=== PATIENT | male | born 1975 | race Caucasian/White ===

== ENCOUNTER 2017-05-07 13:36 | Observation (INO) | payer BC, OTHER ==
[~2017-05-07] VITALS: Ht 185.4 cm; Wt 106.8 kg
[2017-05-07] VITALS (11 sets, daily range): BP systolic 108–140; BP diastolic 61–83; PULSE 70–82; RESP 14–18; TEMP 96.9–98.1; O2SAT 95–98
[~2017-05-07 13:36] MED LIST: IBUP1TAB7 PO
[2017-05-07] MEDS ORDERED: LOSA100T PO (13:55)
--- NOTE | 2017-05-07 14:12 | PD ---
HPI Chief Complaint: Chest Pain Time Seen by Provider: 13:55 Travel History International Travel<30 days: No Contact w/Intl Traveler<30days: No Traveled to known affect area: No History of Present Illness HPI 41-year-old male with history of hypertension here for evaluation of chest pain. The patient reports that about 1.5 hours prior to arriving in the emergency department he began to experience substernal chest discomfort while at rest. He became diaphoretic and nauseous. States the pain was significantly worse when it started, currently 5 out of 10, nonradiating, no modifying factors. He feels slightly short of breath. No fevers, chills, cough , or recent illness. No paresthesias or motor deficits. No hemoptysis. No history of DVT or PE. No known history of cardiac disease. No family history of cardiac disease. He is a nonsmoker. No illicit drug use. He reports that he was evaluated by motor vehicle operator road supervisor Dr. Blake about a year ago reporting that he had a normal stress test at that time. PFSH Past Medical History Diminished Hearing: No Hypertension: Yes Kidney Stones: Yes Past Surgical History Other Surgery: Yes (back surgery) Social History Alcohol Use: Yes (2 BEERS AND 1 MIXED DRINK TODAY ) Tobacco Use: No Substance Use: No Allergies-Medications (Allergen,Severity, Reaction): Coded Allergies: No Known Allergies (Unverified , 06/14/16) Reported Meds & Prescriptions Reported Meds & Active Scripts Active Reported Losartan (Losartan Potassium) 100 Mg Tab 100 Mg PO DAILY Review of Systems Except as stated in HPI: all other systems reviewed are Neg Physical Exam Narrative GENERAL: Well-developed, well-nourished, comfortable, no apparent distress. SKIN: Focused skin assessment warm/dry. HEAD: Atraumatic. Normocephalic. EYES: Pupils equal and round. No scleral icterus. No injection or drainage. ENT: Mucous membranes pink and moist. NECK: Trachea midline. No JVD. CARDIOVASCULAR: Regular rate and rhythm. No murmur appreciated. Distal pulses brisk and equal bilaterally. RESPIRATORY: No accessory muscle use. Clear to auscultation. Breath sounds equal bilaterally. GASTROINTESTINAL: Abdomen soft, non-tender, nondistended. MUSCULOSKELETAL: No obvious deformities. No clubbing. No cyanosis. No edema. NEUROLOGICAL: Awake and alert. No obvious cranial nerve deficits. Motor grossly within normal limits. Normal speech. PSYCHIATRIC: Appropriate mood and affect; insight and judgment normal. Data Data Last Documented VS Vital Signs Date Time Temp Pulse Resp B/P (MAP) Pulse Ox O2 Delivery O2 Flow Rate FiO2 05/07/17 15:10 76 16 108/61 (77) 95 Room Air 05/07/17 13:49 98.1 Orders Orders Electrocardiogram (05/07/17 14:07) Basic Metabolic Panel (Bmp) (05/07/17 14:07) Ckmb (Isoenzyme) Profile (05/07/17 14:07) Complete Blood Count With Diff (05/07/17 14:07) D-Dimer (05/07/17 14:07) Prothrombin Time / Inr (Pt) (05/07/17 14:07) Act Partial Throm Time (Ptt) (05/07/17 14:07) Troponin I (05/07/17 14:07) Chest, Single Ap (05/07/17 14:07) Ecg Monitoring (05/07/17 14:07) Iv Access Insert/Monitor (05/07/17 14:07) Oximetry (05/07/17 14:07) Aspirin Chew (Aspirin Chew) (05/07/17 14:15) Sodium Chloride 0.9% Flush (Ns Flush) (05/07/17 14:15) Nitroglycerin Sl (Nitrostat Sl) (05/07/17 14:15) CKMB (05/07/17 14:27) CKMB% (05/07/17 14:27) Labs Laboratory Tests Test 05/07/17 14:27 White Blood Count 6.0 TH/MM3 Red Blood Count 4.98 MIL/MM3 Hemoglobin 15.3 GM/DL Hematocrit 45.1 % Mean Corpuscular Volume 90.6 FL Mean Corpuscular Hemoglobin 30.6 PG Mean Corpuscular Hemoglobin Concent 33.8 % Red Cell Distribution Width 12.4 % Platelet Count 182 TH/MM3 Mean Platelet Volume 8.1 FL Neutrophils (%) (Auto) 53.3 % Lymphocytes (%) (Auto) 32.1 % Monocytes (%) (Auto) 11.5 % Eosinophils (%) (Auto) 1.5 % Basophils (%) (Auto) 1.6 % Neutrophils # (Auto) 3.2 TH/MM3 Lymphocytes # (Auto) 1.9 TH/MM3 Monocytes # (Auto) 0.7 TH/MM3 Eosinophils # (Auto) 0.1 TH/MM3 Basophils # (Auto) 0.1 TH/MM3 CBC Comment DIFF FINAL Differential Comment Prothrombin Time 12.3 SEC Prothromb Time International Ratio 1.2 RATIO Activated Partial Thromboplast Time 23.0 SEC D-Dimer Quantitative (PE/DVT) LESS THAN 0.19 MG/L FEU Blood Urea Nitrogen 14 MG/DL Creatinine 0.98 MG/DL Random Glucose 96 MG/DL Calcium Level 8.0 MG/DL Sodium Level 138 MEQ/L Potassium Level 3.8 MEQ/L Chloride Level 105 MEQ/L Carbon Dioxide Level 24.0 MEQ/L Anion Gap 9 MEQ/L Estimat Glomerular Filtration Rate 85 ML/MIN Total Creatine Kinase 181 U/L Creatine Kinase MB 1.5 NG/ML Troponin I LESS THAN 0.02 NG/ML MDM Medical Decision Making Medical Screen Exam Complete: Yes Emergency Medical Condition: Yes Medical Record Reviewed: Yes Interpretation(s) EKG: Sinus, rate 77, normal axis, normal intervals, no acute ischemic abnormality. Differential Diagnosis ACS, pneumothorax, pericarditis, PE, pneumonia Narrative Course Initial vital signs show heart rate 82, blood pressure 140/78, pulse ox 98% on room air, oral temp of 98.1F. CBC is unremarkable. BMP is unremarkable. Cardiac enzymes are negative. D-dimer is less than 0.19. Chest x-ray: Normal exam. The patient was given 3 sublingual nitroglycerin and a full oral aspirin. On reassessment he states his chest pain has resolved. Patient will be admitted to the chest pain center for further cardiac evaluation. He is amenable to this plan. Case discussed with hospitalist Dr. Senior who will admit the patient to her service. Diagnosis Primary Impression: Chest pain Qualified Codes: R07.9 - Chest pain, unspecified Admitting Information Admitting Physician Requests: Derian Bah MD May 07, 2017 14:12
[2017-05-07] MEDS ORDERED: ASPIRIN 81 MG CHEW TAB PO ONE (14:15)
[2017-05-07] MEDS ORDERED: SODIUM CHLORIDE 0.9% FLUSH 10 ML FLUSH IVF PRN (14:15)
[2017-05-07] MEDS: NITROGLYCERIN 0.4 MG SL 25 TABS/BTL SL SCH ×3 (14:20→14:40)
--- NOTE | 2017-05-07 14:34 | RADRPT ---
EXAM DATE/TIME: 05/07/2017 14:17 [facility] COMPARISON: No previous studies available for comparison. INDICATIONS : Chest pain today MEDICAL HISTORY : None. SURGICAL HISTORY : None. ENCOUNTER: Initial ACUITY: 1 day PAIN SCORE: 5/10 LOCATION: Bilateral chest FINDINGS: A single view of the chest demonstrates the lungs to be symmetrically aerated without evidence of mas s, infiltrate or effusion. The cardiomediastinal contours are unremarkable. Osseous structures are intact. CONCLUSION: Normal examination. Nikita Lama MD on May 07, 2017 at 14:32 Board Certified Radiologist. This report was verified electronically.
[2017-05-07 14:39] LABS: AUTOMATED NEUTROPHIL # 3.2 TH/MM3 (1.8-7.7); BASOPHIL # 0.1 TH/MM3 (0-0.2); BASOPHIL % 1.6 % (0.0-2.0); EOSINOPHIL # 0.1 TH/MM3 (0-0.4); EOSINOPHIL % 1.5 % (0.0-4.0); HEMATOCRIT 45.1 % (39.0-51.0); HEMOGLOBIN 15.3 GM/DL (13.0-17.0); LYMPH % 32.1 % (9.0-44.0); LYMPHOCYTE # 1.9 TH/MM3 (1.0-4.8); MEAN CELL VOLUME 90.6 FL (80.0-100.0); MEAN CORPUSCULAR HEMOGLOBIN 30.6 PG (27.0-34.0); MEAN CORPUSCULAR HGB CONC 33.8 % (32.0-36.0); MEAN PLATELET VOLUME 8.1 FL (7.0-11.0); MONO % 11.5 % (0.0-8.0); MONOCYTE # 0.7 TH/MM3 (0-0.9); NEUT % 53.3 % (16.0-70.0); PLATELET COUNT 182 TH/MM3 (150-450); RED BLOOD COUNT 4.98 MIL/MM3 (4.50-5.90); RED CELL DISTRIBUTION WIDTH 12.4 % (11.6-17.2)
[2017-05-07 14:46] LABS: CHLORIDE 105 MEQ/L (98-107); SODIUM (NA) 138 MEQ/L (136-145)
[2017-05-07 14:50] LABS: BLOOD UREA NITROGEN 14 MG/DL (7-18); GLUCOSE,RANDOM 96 MG/DL (74-106)
[2017-05-07 14:53] LABS: CREATININE 0.98 MG/DL (0.60-1.30); GLOMERULAR FILTRATION RATE 85 ML/MIN (>89)
[2017-05-07 14:57] LABS: INTERNATIONAL NORMALIZED RATIO 1.2 RATIO; PROTHROMBIN TIME - PATIENT 12.3 SEC (9.8-11.6); TROPONIN I LESS THAN 0.02 NG/ML (0.02-0.05)
[2017-05-07 15:02] LABS: D-DIMER LESS THAN 0.19 MG/L FEU (0.00-0.50)
[2017-05-07] MEDS ORDERED: SODIUM CHLORIDE 0.9% FLUSH 10 ML FLUSH IV FLUSH PRN (15:45)
[2017-05-07] MEDS ORDERED: ALPRAZolam 0.25 MG TAB PO PRN (15:45)
[2017-05-07] MEDS ORDERED: NITROGLYCERIN 0.4 MG SL 25 TABS/BTL SL PRN (15:45)
[2017-05-07] MEDS ORDERED: ACETAMINOPHEN 500 MG CPLT PO PRN (15:45)
[2017-05-07] MEDS ORDERED: ONDANSETRON HCL 4 MG/2 ML VIAL IV PUSH PRN (16:00)
[2017-05-07] MEDS: SODIUM CHLOR 0.9% 1000 ML INJ 1,000 ML IV SCH (16:28)
--- NOTE | 2017-05-07 16:37 | HHI.HP ---
[facility] Service [place] [facility] Primary Care Physician Emily Patricia MD Admission Diagnosis Chest Pain Diagnoses: (1) Chest pain Diagnosis: Principal Chief Complaint: Chest pain Travel History International Travel<30 Days: No Contact w/Intl Traveler <30 Da: No Traveled to Known Affected Are: No History of Present Illness This is a 41 year-old male who has known history of hypertension, headache, back pain who presented to the hospital today because of chest pain. Patient states that 1-1/2 hours prior to come to the hospital he states that his chest locked up. He indicates that it was a severe pain noted in the middle part of his chest 8/10 on a pain scale and was persistent until he came to emergency department and received nitroglycerin 2 which Was resolved his pain. He states that he did have some diaphoresis. Denied any nausea, vomiting , shortness breath, dyspnea, lightheadedness, dizziness, radiation to neck, back , shoulder, arm. Patient states that last year he was evaluated by Dr. Blake and did undergo a nuclear stress test at that time, he states that it was normal. We are unable to obtain the information from stator plate washer office at this time. ER physician recommended that the patient be observed in the hospital in the chest pain center for further recommendations and management. Review of Systems Constitutional: COMPLAINS OF: Diaphoretic episodes Cardiovascular: COMPLAINS OF: Chest pain Except as stated in HPI: all other systems reviewed are Neg Past Family Social History Past Medical History Hypertension Past Surgical History Lumbar spine surgery Reported Medications Reported Meds & Active Scripts Active Reported Losartan (Losartan Potassium) 100 Mg Tab 100 Mg PO DAILY Allergies: Coded Allergies: No Known Allergies (Unverified Allergy, Unknown, 05/07/17) Family History Reviewed and unremarkable for any heart disease, lung disease, kidney disease, seizures, cancer, stroke Social History Patient states that he does drink alcohol on a regular basis probably 2 beers and one mixed drink. He denies any tobacco or illicit drugs Physical Exam Vital Signs Vital Signs Date Time Temp Pulse Resp B/P (MAP) Pulse Ox O2 Delivery O2 Flow Rate FiO2 2/18/18 16:29 95 21 05/07/17 15:10 76 16 108/61 (77) 95 Room Air 05/07/17 14:58 70 16 124/76 (92) 98 Room Air 05/07/17 14:45 75 16 114/76 (89) 98 Room Air 05/07/17 14:32 98 Room Air 05/07/17 13:49 98.1 82 16 140/78 (98) 97 Physical Exam GENERAL: Well-developed, well-nourished, in no acute distress. alert and orientated HEENT: Head is normocephalic without any lesions or masses noted. Facial features are symmetric. Eyes: Pupils equal round reactive to light. Extraocular muscles are intact. Conjunctivae were clear. Oropharyngeal: Pharynx without any erythema edema. Tongue is midline without deviation. Buccal mucosa is moist without any masses or lesions NECK: Supple without any masses. Trachea midline no deviation. No JVD, no bruits are appreciated CARDIAC: Regular rhythm, regular rate. S1/S2 are heard. No murmurs gallops or rubs. LUNGS: Clear to auscultation bilaterally. No wheeze, rhonchi or rales. No use of accessory muscles on inspiration or expiration. ABDOMEN: Soft, nontender. Nondistended. Bowel sounds heard in all 4 quadrants. No organomegaly or masses. Negative rebound, negative guarding EXTREMITIES: No edema, pulses are equal bilaterally. No cyanosis or clubbing NEUROLOGY: Mood and affect appear appropriate. Cranial nerves II through XII grossly intact. Muscle strength 5/5 in upper and lower extremities bilaterally. Deep tendon reflexes are 2+ in upper and lower extremities bilaterally. Laboratory Laboratory Tests Test 05/07/17 14:27 White Blood Count 6.0 Red Blood Count 4.98 Hemoglobin 15.3 Hematocrit 45.1 Mean Corpuscular Volume 90.6 Mean Corpuscular Hemoglobin 30.6 Mean Corpuscular Hemoglobin Concent 33.8 Red Cell Distribution Width 12.4 Platelet Count 182 Mean Platelet Volume 8.1 Neutrophils (%) (Auto) 53.3 Lymphocytes (%) (Auto) 32.1 Monocytes (%) (Auto) 11.5 Eosinophils (%) (Auto) 1.5 Basophils (%) (Auto) 1.6 Neutrophils # (Auto) 3.2 Lymphocytes # (Auto) 1.9 Monocytes # (Auto) 0.7 Eosinophils # (Auto) 0.1 Basophils # (Auto) 0.1 CBC Comment DIFF FINAL Differential Comment Prothrombin Time 12.3 Prothromb Time International Ratio 1.2 Activated Partial Thromboplast Time 23.0 D-Dimer Quantitative (PE/DVT) LESS THAN 0.19 Blood Urea Nitrogen 14 Creatinine 0.98 Random Glucose 96 Calcium Level 8.0 Sodium Level 138 Potassium Level 3.8 Chloride Level 105 Carbon Dioxide Level 24.0 Anion Gap 9 Estimat Glomerular Filtration Rate 85 Total Creatine Kinase 181 Creatine Kinase MB 1.5 Troponin I LESS THAN 0.02 Result Diagram: 05/07/17 1427 05/07/17 1427 Imaging Last Impressions Chest X-Ray 05/07/17 1407 Signed Impressions: Service Date/Time: Sunday, May 07, 2017 14:17 - CONCLUSION: Normal examination. MD Escobar Limon VTE Risk Assessment Escobar VTE Risk Assessment: No/Low Risk (score <= 1) Escobar Risk Assessment Model Point Value = 1 Point Value = 2 Point Value = 3 Point Value = 5 Age 41-60 Minor surgery BMI > 25 kg/m2 Swollen legs Varicose veins or History of unexplained or recurrent spontaneous Oral contraceptives or hormone replacement Sepsis (< 1 month) Serious lung disease, including pneumonia (< 1 month) Abnormal pulmonary function Acute myocardial infarction Congestive heart failure (< 1 month) History of inflammatory bowel disease Medical patient at bed rest Age 61-74 Arthroscopic surgery Major open surgery (> 45 min) Laparoscopic surgery (> 45 min) Malignancy Confined to bed (> 72 hours) Immobilizing plaster cast Central venous access Age >= 75 History of VTE Family history of VTE Factor V Leiden Prothrombin [id number] Lupus anticoagulant Anticardiolipin antibodies Elevated serum homocysteine Heparin-induced thrombocytopenia Other congenital or acquired thrombophilia Stroke (< 1 month) Elective arthroplasty Hip, pelvis, or leg fracture Acute spinal cord injury (< 1 month) Prophylaxis Regimen Total Risk Factor Score Risk Level Prophylaxis Regimen 0-1 Low Early ambulation 2 Moderate Order ONE of the following: *Sequential Compression Device (SCD) *Heparin 5000 units SQ BID 3-4 Higher Order ONE of the following medications: *Heparin 5000 units SQ TID *Enoxaparin/Lovenox 40 mg SQ daily (WT < 150 kg, CrCl > 30 mL/min) *Enoxaparin/Lovenox 30 mg SQ daily (WT < 150 kg, CrCl > 10-29 mL/min) *Enoxaparin/Lovenox 30 mg SQ BID (WT < 150 kg, CrCl > 30 mL/min) AND/OR *Sequential Compression Device (SCD) 5 or more Highest Order ONE of the following medications: *Heparin 5000 units SQ TID (Preferred with Epidurals) *Enoxaparin/Lovenox 40 mg SQ daily (WT < 150 kg, CrCl > 30 mL/min) *Enoxaparin/Lovenox 30 mg SQ daily (WT < 150 kg, CrCl > 10-29 mL/min) *Enoxaparin/Lovenox 30 mg SQ BID (WT < 150 kg, CrCl > 30 mL/min) AND *Sequential Compression Device (SCD) Assessment and Plan Assessment and Plan Chest pain Patient with minimal risk factors to include hypertension Thus far patient is without any signs of acute coronary event with cardiac enzymes negative. We'll continue to trend EKG reviewed by social normal sinus rhythm, continue to trend to evaluate for any changes We'll request records from Dr. Blake for recent cardiac evaluation and stress test We'll plan for myocardial perfusion test in the a.m. to rule out any underlying ischemia continue aspirin, nitroglycerin as needed, Hypertension Continue home medications DVT prevention Subcutaneous Lovenox Problem Qualifiers (1) Chest pain: Qualified Codes: R07.9 - Chest pain, unspecified Leroy Tyler May 07, 2017 16:37
[2017-05-07] MEDS ORDERED: ENOXAPARIN SODIUM 40 MG/0.4 ML SYRINGE SQ SCH (18:00)
[2017-05-07 18:10] LABS: TROPONIN I LESS THAN 0.02 NG/ML (0.02-0.05)
[2017-05-07] MEDS: SODIUM CHLORIDE 0.9% FLUSH 10 ML FLUSH IV FLUSH SCH (19:37)
[2017-05-07 21:17] LABS: TROPONIN I LESS THAN 0.02 NG/ML (0.02-0.05)
[2017-05-08] VITALS: BP 119/86; PULSE 69; RESP 16; TEMP 96; O2SAT 99
[2017-05-08 03:55] VITALS: BP 108/72; PULSE 66; RESP 18; TEMP 97.6; O2SAT 98
[2017-05-08] MEDS: SODIUM CHLOR 0.9% 1000 ML INJ 1,000 ML IV SCH ×2 (04:44→11:38)
--- NOTE | 2017-05-08 07:37 | HHI.PR ---
Subjective Remarks Patient seen and examined today for follow up on chest pain. Patient denies any recurrent chest pain or cephalgia, He is feeling good today, Vitals are stable, Afebrile, Discussed with him the plan to perform stress test and possible D/C if negative. Patient is in agreement with plan Objective Vitals Vital Signs Date Time Temp Pulse Resp B/P (MAP) Pulse Ox O2 Delivery O2 Flow Rate FiO2 05/08/17 03:55 97.6 66 18 108/72 (84) 98 05/08/17 00:00 96.0 69 16 119/86 (97) 99 05/07/17 21:14 98 21 05/07/17 20:02 81 05/07/17 20:00 97.2 75 18 118/73 (88) 97 05/07/17 18:10 96.9 70 14 131/83 (99) 95 05/07/17 16:41 70 16 116/70 (85) 98 05/07/17 16:29 95 21 05/07/17 15:10 76 16 108/61 (77) 95 Room Air 05/07/17 14:58 70 16 124/76 (92) 98 Room Air 05/07/17 14:45 75 16 114/76 (89) 98 Room Air 05/07/17 14:32 98 Room Air 05/07/17 13:49 98.1 82 16 140/78 (98) 97 I/O 05/07/17 05/07/17 05/07/17 05/08/17 05/08/17 05/08/17 07:00 15:00 23:00 07:00 15:00 23:00 Intake Total 806 ml 663 ml Balance 806 ml 663 ml Intake Oral 480 ml IV Total 326 ml 663 ml # Voids 1 2 # Bowel Movements 0 0 Result Diagram: 05/07/17 1427 05/07/17 1427 Objective Remarks GENERAL: Well-developed, well-nourished, in no acute distress. alert and orientated HEENT: Head is normocephalic without any lesions or masses noted. Facial features are symmetric. Eyes:Extraocular muscles are intact. Conjunctivae were clear. NECK: Supple without any masses. Trachea midline no deviation. No JVD, CARDIAC: Regular rhythm, regular rate. S1/S2 are heard. No murmurs gallops or rubs. LUNGS: Clear to auscultation bilaterally. No wheeze, rhonchi or rales. No use of accessory muscles on inspiration or expiration. ABDOMEN: Soft, nontender. Nondistended. Bowel sounds heard in all 4 quadrants. No organomegaly or masses. Negative rebound, negative guarding EXTREMITIES: No edema, pulses are equal bilaterally. No cyanosis or clubbing NEUROLOGY: Mood and affect appear appropriate. Cranial nerves II through XII grossly intact. Urinary Catheter: No Vascular Central Line Catheter: No A/P Assessment and Plan Chest pain Patient with minimal risk factors to include hypertension Serial cardiac enzymes were negative and ruled out any acute coronary syndrome Serial EK'S were performed and reviewed by myself, which showed normal sinus rhythm without any changes Requested records from Dr. Blake for recent cardiac evaluation and stress test Myocardial perfusion test was performed and was unremarkable for any ischemia. Low risk continue aspirin, nitroglycerin as needed, Hypertension Continue home medications DVT prevention Subcutaneous Lovenox Discharge Planning Discharge home in stable condition Activity: Ad Yesika Diet: Healthy heart diet Medication per medication reconciliation sheet Follow up with Primary medical doctor in 1 week, Dr Blake in 2 weeks Leroy Tyler May 08, 2017 07:37
[2017-05-08 07:48] VITALS: BP 126/87; PULSE 63; RESP 20; TEMP 96.7; O2SAT 98
[2017-05-08] MEDS: SODIUM CHLORIDE 0.9% FLUSH 10 ML FLUSH IV FLUSH SCH (08:50)
[2017-05-08] MEDS ORDERED: REGADENOSON INJ 0.4 MG/5 ML SYR IV ONE (11:17)
--- NOTE | 2017-05-08 12:35 | RADRPT ---
EXAM DATE/TIME: 05/08/2017 10:19 [facility] COMPARISON: No previous studies available for comparison. INDICATIONS : Mid chest pain with diaphoresis for two days. Angina. DOSE: 35.0 mCi Tc99m Myoview at stress. 11.0 mCi Tc99m Myoview at rest. 0.4 mg Lexiscan STRESS SYMPTOMS: Shortness of breath and a headache. EJECTION FRACTION: 47% MEDICAL HISTORY : Hypertension. SURGICAL HISTORY : Discectomy, lumbar. ENCOUNTER: Initial ACUITY: 1 day PAIN SCALE: 8/10 LOCATION: Midsternal chest TECHNIQUE: The patient underwent pharmacologic stress with infusion of prescribed dose. Continuous ECG tracing was monitored during stress. Gated SPECT imaging was performed after stress and conventional SPECT i maging was performed at rest. The examination was performed on a SPECT/CT scanner, both attenuation and non-corrected datasets were reviewed. FINDINGS: DISTRIBUTION: The maximum perfused segment at stress is in the septal wall. PERFUSION STUDY: The pattern of perfusion at stress is within normal limits. GATED STUDY: There is intact wall motion and thickening without hypokinetic or dyskinetic segments. CONCLUSION: 1. No reversible defects observed to suggest acute ischemia. 2. Ejection fraction just below the normal range for patient of this age. RISK CATEGORY: low Harshad Shelton Jr., MD on May 08, 2017 at 12:29 Board Certified Radiologist. This report was verified electronically.
--- NOTE | 2017-05-08 12:37 | HHI.DCPOC ---
Discharge Care Plan Diagnosis: (1) Chest pain Goals to Promote Your Health * To prevent worsening of your condition and complications * To maintain your health at the optimal level Directions to Meet Your Goals Take your medications as prescribed Follow your dietary instruction Follow activity as directed Keep your appointments as scheduled Take your immunizations and boosters as scheduled If your symptoms worsen call your PCP, if no PCP go to Urgent Care Center or Emergency Room Smoking is Dangerous to Your Health. Avoid second hand smoke Call the 24-hour hour crisis hotline for domestic abuse at Leroy Tyler May 08, 2017 12:37
--- NOTE | 2017-05-08 15:48 | EKG ---
Date Performed: 05/07/2017 Time Performed: 20:43:58 PTAGE: 41 years EKG: Sinus rhythm NORMAL ECG PREVIOUS TRACING : 05/07/2017 17.33 Since previous tracing, no significant change noted DOCTOR: Kapil Celeste Interpretating Date/Time 05/08/2017 15:46:43
--- NOTE | 2017-05-08 15:56 | EKG ---
Date Performed: 05/07/2017 Time Performed: 17:33:49 PTAGE: 41 years EKG: Sinus rhythm NORMAL ECG PREVIOUS TRACING : 05/07/2017 13.43 Since previous tracing, no significant change noted DOCTOR: Kapil Celeste Interpretating Date/Time 05/08/2017 15:54:17
--- NOTE | 2017-05-08 15:57 | EKG ---
Date Performed: 05/07/2017 Time Performed: 13:43:55 PTAGE: 41 years EKG: Sinus rhythm NORMAL ECG INTERPRETATION BASED ON A DEFAULT AGE OF 42 YEARS NO PREVIOUS TRACING DOCTOR: Kapil Celeste Interpretating Date/Time 05/08/2017 15:54:53
--- NOTE | 2017-05-08 15:58 | TR ---
Date Performed: 05/08/2017 Time Performed: 10:56:01 DOCTOR: Kapil Celeste DRUG LIST: CLINICAL HISTORY: ANGINA REASON FOR TEST: Angina REASON FOR ENDING: OBSERVATION: CONCLUSION: Lexiscan stress test was performed under standard four minute protocol. Radion[place] e was injected one minute prior to ending the test. No electrocardiographic abormalities were present to suggest ischemia. Nuclear imaging and interpretation are pending. COMMENTS:
== END 2017-05-08 16:14 | disposition home or self-care (01) ==
LOC: PHED 13:36 → PHEDA 15:42 → PH3B 16:34
PROVIDERS: ADMIT Hospitalist; ATTEND Hospitalist
DX: R07.9 Chest pain, unspecified (principal); I10 Essential (primary) hypertension; M54.9 Dorsalgia, unspecified; R51 Headache; Z87.442 Personal history of urinary calculi
CPT/HCPCS: 71045; 78452; 80048; 82550; 82552; 84484; 85025; 85379; 85610; 85730; 93005; 93017; 96360; 96372; A9502; G0378; J1650; J2785; J7030

== ENCOUNTER 2017-05-17 08:25 | Day surgery (SDC) | payer BC ==
[~2017-05-17] VITALS: Ht 185.4 cm; Wt 107.8 kg
[~2017-05-17 08:25] MED LIST changes: -IBUP1TAB7 PO; +LOSA100T PO
[2017-05-17] MEDS ORDERED: IOHEXOL 350 MG/ML 50 ML BTL (for Cath Lab) OTHER ONE (08:26)
[2017-05-17 08:54] VITALS: BP 147/95; PULSE 62; RESP 14; TEMP 98; O2SAT 97
[2017-05-17] MEDS ORDERED: IBUP1TAB7 PO (08:56)
[2017-05-17] MEDS ORDERED: METO50TA PO (08:56)
[2017-05-17] MEDS ORDERED: NITR0.4S SL (08:56)
[2017-05-17] MEDS ORDERED: ISOS30TA3 PO (08:56)
[2017-05-17] MEDS ORDERED: NS 1000P @30 MLS/HR (KVO) IV SCH (09:00)
[2017-05-17 09:18] LABS: AUTOMATED NEUTROPHIL # 4.4 TH/MM3 (1.8-7.7); BASOPHIL # 0.1 TH/MM3 (0-0.2); EOSINOPHIL # 0.2 TH/MM3 (0-0.4); EOSINOPHIL % 2.9 % (0.0-4.0); HEMATOCRIT 44.6 % (39.0-51.0); HEMOGLOBIN 15.9 GM/DL (13.0-17.0); LYMPH % 23.9 % (9.0-44.0); LYMPHOCYTE # 1.7 TH/MM3 (1.0-4.8); MEAN CELL VOLUME 89.7 FL (80.0-100.0); MEAN CORPUSCULAR HGB CONC 35.6 % (32.0-36.0); MONOCYTE # 0.7 TH/MM3 (0-0.9); NEUT % 62.2 % (16.0-70.0); PLATELET COUNT 172 TH/MM3 (150-450); RED BLOOD COUNT 4.98 MIL/MM3 (4.50-5.90); RED CELL DISTRIBUTION WIDTH 12.9 % (11.6-17.2); WHITE BLOOD COUNT 7.1 TH/MM3 (4.0-11.0)
[2017-05-17 09:25] LABS: INTERNATIONAL NORMALIZED RATIO 1.1 RATIO
[2017-05-17 09:35] LABS: BICARBONATE 26.1 MEQ/L (21.0-32.0); CREATININE 0.89 MG/DL (0.60-1.30)
[2017-05-17] MEDS ORDERED: NITROGLYCERIN INJ 5 ML ONE (10:38)
[2017-05-17] MEDS ORDERED: HEPARIN SODIUM - IV 10,000 UNITS/10 ML VIAL ONE (10:38)
[2017-05-17] MEDS ORDERED: HEPARIN-NS/PF FLUSH BAG 1,000 ML IV FLUSH ONE (10:38)
[2017-05-17] MEDS ORDERED: VERAPAMIL HCL 5 MG/2 ML VIAL ONE (10:38)
[2017-05-17] MEDS ORDERED: MIDAZOLAM HCL 2 MG/2 ML VIAL ONE (10:38)
[2017-05-17] MEDS ORDERED: AMLO5 PO ×2 (11:41→12:52)
--- NOTE | 2017-05-17 11:41 | CATHPROC ---
[employer] HIS Report Study Information Study Number Admission Scheduled Start Study Start [id number] May 17 2017 8:25AM 05/17/2017 May 17 2017 10:26AM [facility] Cardiac Catheterization Admit Source Facility Department Other [facility] - Proof Passer Physician and Clinical Staff Initial Bran Joyner Liquor Store Manager Courtney Leonardo,RYAN Recorder Kierra Scott,TOWBOAT OPERATOR TECH2 Recorder Josesito Negron,RT(R) ScrFranci DuncanRT(R) (BS) Procedures Performed Procedure Location (Site) Vessel Name Coronary Angiograms LCA Left Coronary Coronary Angiograms RCA Right Coronary Equipment Time Molder Hand Description Size Mfg Part Number Used/Scraped TRANSDUCER, TRUWAVE [id number] 10:28 WILLARD SANCHEZ * Used W/STOCKCOCK *[id number] [id number] *[id number] [id number] *[id number] 10:28 [facility] PACK, CCL CUSTOM * Used *[id number] 10:28 [facility] SUPPORT, ARTERIAL ADULT 92211 *[id number] Used 11:20 [employer]TRONIC AR MOD DXTERITY CATHETER FR 5 [id number] Used BAND, RADIAL COMPRESSION TR [id number] 11:31 [employer] MEDICAL 24CM Used SHORT 24 *[id number] 10:28 [employer] MEDICAL WIRE, EXCHANGE 260CM 3MMJ 260CM Used *[id number] 10:28 [employer] MANIFOLD, 4 PORT * Used *[id number] 10:28 [employer] OMNIPAQUE, 350 MG, 150ML 150ML [id number] Used [id number] 10:28 [employer],WARM AIR CCL * Used *[id number] SHEATH, FR6 TRANSRADIAL RM*[id number] 10:28 [employer] MEDICAL FR 6 Used SLENDER 10CM *[id number] Equipment Model, Serial, Lot Number and Expiration Data Description Model Number Serial Number Lot Number Expiration Date AR MOD DXTERITY CATHETER [id number] 07-16-2019 History: Current Medications Medication Dosage/Unit Route Frequency Last Date/Time Taken LOPRESSOR NTG SL Imdur COZAAR History: Allergies Allergy Reaction No Known Allergies History: Risk Factors Family History of Hypertension Dyslipidemia Previous PR Previous Heart Failure Premature CAD Yes No No No No Prior Valve Prior PCI Prior CABG Surgery No No No Cerebrovascular Peripheral Artery Chronic Lung On Dialysis Diabetes Disease Disease Disease No No No No No History: Symptoms/Diagnosis Selection Items Chest pain History: Stress Tests Stress or Imaging Studies Performed Yes Standard Exercise Stress Test No Stress Echo No Stress Test SPECT Stress Test SPECT Result Yes Negative Stress Test CMR No Cardiac CTA Coronary Calcium Score No No History: Other Current Smoker No Labs Hgb (g/dl) Hct (%) RBC (MIL/MM3) WBC (l/cumm) Platelets (thousands) 11.60-17.00 35.00-51.00 4.00-5.90 4.00-11.00 150.00-450.00 15.9 44.6 4.9 7.1 172 Glucose (mg/dl) BUN (mg/dl) Creatinine (mg/dl) BUN:Creatinine (1:x) 74.00-106.00 7.00-18.00 0.50-1.30 10.00-20.00 105 16 0.8 20 Na (meq/l) K (meq/l) Cl (meq/l) CO2 (mmol/L) Ca (mg/dl) 136.00-145.00 3.50-5.10 98.00-107.00 21.00-32.00 8.50-10.10 137 4 104 26.1 9 PT (sec) PTT (sec) INR (PTT:PT) 9.80-11.60 24.30-30.10 0.90-1.10 11 24.2 1.1 CPK-MB (ng/ML) 0.50-3.60 Not Drawn Medication Medication Total Dose (Bolus/Oral) Medication Total Dosage/Unit 1% XYLOCAINE 20 mL FENTANYL 25 mcg RADIAL COCKTAIL 5 mL (Bolus) VERSED 0.5 mg Medications (Bolus/Oral) Medication Time Given Dosage/Unit Administered By Reason VERSED 05/17/2017 11:11:14 AM 0.5 mg Courtney Leonardo 0.5 mg VERSED given in lab by Courtney Leonardo RN in Left Forearm via Peripheral IV. Ordered by Bran Agrawal 1% XYLOCAINE 05/17/2017 11:11:30 AM 20 mL Bran Velez 20 mL 1% XYLOCAINE given in lab by Bran Velez in Right Radial via Subcutaneous. Ordered by Bran Narvaez FENTANYL 05/17/2017 11:12:38 AM 25 mcg Courtney Leonardo 25 mcg FENTANYL given in lab by Courtney Leonardo, RN in Left Forearm via Peripheral IV. Ordered by Bran Rios RADIAL COCKTAIL 05/17/2017 11:13:04 AM 5 mL (Bolus) Bran Velez Patient arrived on 5 mL (Bolus) RADIAL COCKTAIL via Radial. Using D5W. Reason: Ntg 200mcg Verapamil 2 .5mg Heparin 4300U. Medication (Drip) Medication Time Given Dosage/Unit Concentration/Unit Diluent (ml) Solution IV Solutions 05/17/2017 10:36:16 AM 0 mL (IV) 500 NaCl .9 Patient arrived on IV Solutions in Left Forearm via Peripheral IV. Pump/Drip Flow = 20 ml/hr using Na Cl .9. Initial Case Assessment Cardiovascular HR Rhythm NIBP Chest Pain 50 sb 137/95 0 Circulatory - Right Pulses Dorsalis Pedis Femoral Radial 2 2 2 Scale (0,1,2,3,4,d) Circulatory - Left Pulses Dorsalis Pedis Femoral Radial 2 2 Scale (0,1,2,3,4,d) Neurological State Oriented to time-place- Alert Moves all extremities person Respiration - General Respiration Rate SpO2 (%) (B/min) 20 97 Final Case Assessment Cardiovascular NIBP Chest Pain 122/76 0 Circulatory - Right Pulses Dorsalis Pedis Femoral Radial 2 2 2 Scale (0,1,2,3,4,d) Circulatory - Left Pulses Dorsalis Pedis Femoral Radial 2 2 Scale (0,1,2,3,4,d) Neurological State Oriented to time-place- Alert Moves all extremities person Respiration - General Respiration Rate SpO2 (%) (B/min) 24 98 Chronological Log Time Study Chronological Log 10:32:16 Patient arrived via Bed. 10:32:17 Patient Name, D.O.B, / Armband Verified By R.N. 10:32:19 Consent signed by the physician and the patient and verified by the Proof Passer staff. 10:32:20 Pre-op and post- op instructions given; patient acknowledges understanding of instructions. 10:32:21 Verbal Stimulation=2 Physical Stimulation=2 Airway=2 Respiration=2 TOTAL=8. (0=absent, 1=li mited, 2=present) 10:32:33 Presedation assessment performed by Proof Passer RN. 10:32:37 Allens test performed on the right radial and ulnar artery. 10:32:39 Patient has been NPO for More than 6Hrs. 10:32:40 Skin Breakdown-none 10:32:42 Lynne Prominences Protected 10:36:01 A # 20 IV was noted in the Forearm (left). Grade = patent 10:36:16 Patient arrived on IV Solutions in Left Forearm via Peripheral IV. Pump/Drip Flow = 20 ml/h r using NaCl .9. 10:36:41 History and physical on the chart or being dictated. Vitals capture started with the following parameters, Patient=Adult, Interval=5 min, Initial Pr xieevu=408 mmHg, 10:36:46 Deflation Rate=5 mmHg, Cuff placed on Left Arm 10:36:50 Reference ECG taken 10:37:19 HR=54 bpm, GYLE=915/95 mmhg, SpO2=98.0 %, Resp=10 B/min, Pain=0, Marie=10, Castillo=2 Assessment: Initial Case, HR=50 BPM, Rhythm=sb, FIUN=743/95 mmhg, Chest Pain=0 Right Pulses: Chapo Ped=2, Femoral=2, Radial=2 10:40:15 Left Pulses: Chapo Ped=2, Femoral=2 Neurological: State=Alert, Ox3, GALVIN Respiration: Resp=20 B/min, SpO2=97 % 10:42:20 HR=50 bpm, XTTP=641/88 mmhg, SpO2=98.0 %, Resp=22 B/min 10:45:45 MD paged 10:45:50 Right groin prepped with 2% chlorhexidine, and draped after a 3 min. waiting time. 10:47:23 HR=53 bpm, TMDY=803/82 mmhg, SpO2=98.0 %, Resp=22 B/min 10:47:25 Pressure channel 1 zeroed. 10:52:20 HR=51 bpm, VGQA=136/85 mmhg, SpO2=96.0 %, Resp=24 B/min 10:57:21 HR=51 bpm, OKKK=705/82 mmhg, SpO2=98.0 %, Resp=25 B/min 11:02:22 HR=51 bpm, BTOW=001/85 mmhg, SpO2=97.0 %, Resp=21 B/min 11:07:23 HR=49 bpm, CZGJ=415/79 mmhg, SpO2=97.0 %, Resp=22 B/min 11:07:58 MD arrived. Time Out. Correct patient, correct procedure, correct physician, power injector not loaded with contrast with surgical 11:10:47 team present. Time Out Concurred by MD and individual staff in procedure. 11:11:14 0.5 mg VERSED given in lab by Courtney Leonardo, RN in Left Forearm via Peripheral IV. Ordered by Bran Velez 11:11:29 Case Start 20 mL 1% XYLOCAINE given in lab by Bran Velez in Right Radial via Subcutaneous. Ordere d by Agustin, 11:11:30 Bran Rodriguez 11:12:22 HR=61 bpm, WZDM=142/86 mmhg, SpO2=97.0 %, Resp=21 B/min 11:12:25 Access site was Radial Artery. Right 25 mcg FENTANYL given in lab by Courtney Leonardo, RYAN in Left Forearm via Peripheral IV. Ordered b y Bran Velez 11:12:38 G. A SHEATH, FR6 TRANSRADIAL SLENDER 10CM FR 6 was advanced into the Radial (right) using the Perc utaneous 11:12:38 technique. Patient arrived on 5 mL (Bolus) RADIAL COCKTAIL via Radial. Using D5W. Reason: Ntg 200mcg Verap johny 2.5mg 11:13:04 Heparin 4300U. A JR 4.0 INFINITI CATHETER FR 5 was advanced over a wire. OMNIPAQUE, 350 MG, 150ML 150ML was us ed for 11:13:39 injections. Recorded Pressure: LV, HR=64, Condition=Condition 1 11:16:43 (Left Ventricle) LV 99/4/12 Recorded Pressure: LV, Ao, HR=66, Condition=Condition 1 11:16:56 (Left Ventricle) LV 96/2/6, (Aorta) Ao 96/65/81 11:17:29 HR=61 bpm, KCZS=766/57 mmhg, SpO2=95.0 %, Resp=23 B/min 11:18:50 Unable to canulate RCA, Catheter was removed After removing the current catheter a JL 3.5 INFINITI CATHETER FR 5 was advanced over a WIRE, E XCHANGE 260CM 11:19:18 3MMJ 260CM. 11:22:15 The LCA was injected and visualized at various angles. OMNIPAQUE, 350 MG, 150ML 150ML used . 11:22:22 HR=56 bpm, WXQG=445/69 mmhg, SpO2=95.0 %, Resp=23 B/min After removing the current catheter a AR MOD DXTERITY CATHETER FR 5 was advanced over a WIRE, E XCHANGE 11:24:09 260CM 3MMJ 260CM. 11:27:08 The RCA was injected and visualized at various angles. OMNIPAQUE, 350 MG, 150ML 150ML used . 11:27:23 HR=56 bpm, IOOH=496/70 mmhg, SpO2=95.0 %, Resp=26 B/min 11:28:20 Catheter was removed 11:30:25 Case End Radial Compression Device Used. 11 mLs of air placed in BAND, RADIAL COMPRESSION TR SHORT 24 24 CM. Affected 11:31:18 hand 96 % O2 saturation. 11:32:22 HR=51 bpm, ZGMV=098/76 mmhg, SpO2=98.0 %, Resp=24 B/min 11:36:44 No case complications noted. 11:36:45 Cine recording checked. Assessment: Final Case, NXAY=048/76 mmhg, Chest Pain=0 Right Pulses: Chapo Ped=2, Femoral=2, Radial=2 11:36:47 Left Pulses: Chapo Ped=2, Femoral=2 Neurological: State=Alert, Ox3, GALVIN Respiration: Resp=24 B/min, SpO2=98 % 11:37:47 Bedside Report will be given. 11:37:53 Patient moved to bed 11:41:04 Patient transported to DOCU End Study - Contrast Media Used In Study Contrast Total Opened (mL) Total Used (mL) Total Wasted (mL) Omnipaque 40 40 0 End Study - Maximum Contrast Load Max Contrast Load (mL) 673.9 End Study - Radiation Exposure Fluoro Time (minutes) 6.4 End Study - Sheaths Sheaths Pulled By Sheath Hold Time (min) Franci Kahn End Study - Patient Disposition Complications Transferred To Interventional Outcome No Telemetry Bed No attempt made
[2017-05-17] MEDS ORDERED: MISC INFORMATION XX ONE (11:45)
--- NOTE | 2017-05-17 12:43 | MA ---
cc: Bran Velez DO 05/17/2017 PROCEDURE: Left heart catheterization, coronary angiogram, moderate sedation, 20 minutes. PREPROCEDURE DIAGNOSIS: Chest pain concerning for unstable angina after normal stress test. 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 MEDICATIONS: Versed 0.5 mg, fentanyl 25 mcg, heparin 4300 units, nitroglycerin 200 mcg, verapamil 2.5 mg. CONTRAST USED: 40 mL. FLUOROSCOPY: 6.4 minutes. SEDATION: Moderate sedation, 20 minutes. ESTIMATED BLOOD LOSS: 10 mL. PROCEDURAL SUMMARY: Sheng Grimm is a pleasant 41-year-old male who sees my partner, Dr. Blake, in the office and underwent stress testing due to chest pain. This was found to be normal, but the patient continued to have chest pain concerning for coronary insufficiency. Because of this, he was recommended cardiac catheterizations. Risks, benefits, and alternatives were explained to him and he consented to such. He was brought to the lab and prepped in the usual sterile fashion. Right radial artery was accessed using a modified Seldinger technique and placement of a 5/6 Slender sheath. This was easily aspirated and flushed. A JR4 was advanced over a J-wire to the descending aorta and across the aortic valve for measurement of left ventricular pressure. This is pulled back across the aortic valve, showing no significant gradient of aortic stenosis. I was unable to engage the right coronary artery with the JR4 and so this was exchanged for a JL3.5, which was used for selective angiography of the left coronary artery system. This was exchanged out for an AR MOD, which was used for selective angiography of the right coronary artery system. AR MOD was removed over a J-wire. Radial band was placed over the arteriotomy site for hemostasis. Patient left the skill labor cardiovascularly stable. FINDINGS: LEFT MAIN: Normal size vessel with no significant disease. It bifurcates into an LAD and circumflex. LEFT ANTERIOR DESCENDING: Normal size vessel with no significant disease in the proximal portion. The midportion of it shows a long tubular segment of myocardial bridging. It gives off 1 diagonal with no disease. LEFT CIRCUMFLEX: Normal size vessel with 1 large obtuse marginal. No significant disease throughout the system. RIGHT CORONARY ARTERY: Anterior takeoff. No disease throughout the vessel. It is a dominant vessel by nature. LVEDP 6. IMPRESSIONS: 1. Chest pain concerning for coronary insufficiency. 2. 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 RECOMMENDATIONS: 1. Mr. Grimm appears to have chest pain, most likely due to myocardial bridging. 2. Overall, the treatment for this is medical management. He is currently on a beta-kell with heart rates around 60, and Imdur. I would try to place him on further antianginals with Norvasc 5 mg daily. 3. He will follow up with Dr. Blake as previously scheduled. Thank you for allowing me to see Sheng Grimm. If there are any questions, please do not hesitate to call. Bran Velez DO VGP/TI , 11:45 AM , 12:41 PM MTDD
--- NOTE | 2017-05-18 09:40 | EKG ---
Date Performed: 05/17/2017 Time Performed: 09:10:56 PTAGE: 41 years EKG: Sinus bradycardia. Normal ECG except for rate Since the prior tracing, there has been no si gnificant change PREVIOUS TRACING : 05/07/2017 20.43 DOCTOR: Kapil Celeste Interpretating Date/Time 05/18/2017 09:37:41
== END 2017-05-17 12:20 | disposition home or self-care (01) ==
LOC: HDOC 08:25 → HDIC 08:25 → HDOC 12:20
PROVIDERS: ATTEND Nuclear Medicine Nuclear Cardiology
DX: Q24.5 Malformation of coronary vessels (principal); R07.9 Chest pain, unspecified; I10 Essential (primary) hypertension; R51 Headache; E66.9 Obesity, unspecified; Z68.31 Body mass index [BMI] 31.0-31.9, adult; Z01.810 Encounter for preprocedural cardiovascular examination; Z01.818 Encounter for other preprocedural examination
CPT/HCPCS: 80048; 85025; 85610; 85730; 93005; 93458; 99152; 99153; C1769; C1893; J1644; J2250; J3010; Q9967